=== PATIENT | male | born 1945 | race Caucasian/White ===

== ENCOUNTER → 2017-01-27 | Outpatient (CLI) | payer MEDICARE, OTHER ==
[~2017-01-27] MED LIST: B COMPLEX1 TA4 PO; CARDI-OMEGA1000 MG PO; FIBER TABLETS1 TAB PO; GLUCOSAMINE & C1 TA1 PO; MULTIPLE VITAMI1 CAP PO; PRILOSEC 20MG20 MG PO; TOPROL XL25 MG PO; XARELTO20 MG PO
== END ==
LOC: LAB 10:06
DX: I48.2 Chronic atrial fibrillation (principal); E78.2 Mixed hyperlipidemia

== ENCOUNTER → 2017-06-22 | Outpatient (CLI) | payer MEDICARE, OTHER ==
[~2017-06-22] VITALS: Ht 175.3 cm; Wt 84.1 kg
[2017-06-22 10:42] VITALS: BP 130/83
== END ==
LOC: RAD 09:48 → AMSURD 09:48
DX: Z01.818 Encounter for other preprocedural examination (principal); H25.019 Cortical age-related cataract, unspecified eye; K90.9 Intestinal malabsorption, unspecified

== ENCOUNTER → 2018-02-02 | Outpatient (CLI) | payer MEDICARE, OTHER ==
[2017-06-22 10:42] VITALS: BP 130/83
[2018-02-02 12:21] LABS: EOS # 0.1 (0.04-0.40); EOS % 2.2 % (0.0-4.0); HEMATOCRIT 47.1 % (42.0-52.0); HEMOGLOBIN 15.8 g/dL (13.5-18.0); LYMPH# 1.5 (1.50-4.00); MEAN CELL VOLUME 91 fl (78-100); MEAN CORPUSCULAR HEMOGLOBIN 30 pg (27-31); MEAN CORPUSCULAR HGB CONC 34 g/dL (33-37); MEAN PLATELET VOLUME 9.8 fl (7.4-10.4); MONO # 0.6 (0.20-0.80); NEU # 3.3 (1.40-6.50); PLATELET COUNT 246 K/mm3 (130-400); RED BLOOD COUNT 5.19 M/mm3 (4.20-5.60); RED CELL DISTRIBUTION WIDTH 13.2 % (11.5-14.5); WHITE BLOOD COUNT 5.6 K/mm3 (4.8-10.8)
[2018-02-02 12:34] LABS: ALBUMIN 4.1 g/dL (3.5-5.0); BUN/CREATININE RATIO 12.7 (6.0-26.0); CALCIUM 9.3 mg/dL (8.4-10.2); POTASSIUM 4.1 mmol/L (3.6-5.0); TOTAL BILIRUBIN 0.7 mg/dL (0.2-1.3); TOTAL PROTEIN 7.6 g/dL (6.3-8.2)
[2018-02-02 13:23] LABS: ERYTHROCYTE SEDIMENTATION RATE 7 mm/hr (0-20)
== END ==
LOC: LAB 11:03
PROVIDERS: Internal Medicine
DX: I48.91 Unspecified atrial fibrillation (principal); E78.5 Hyperlipidemia, unspecified; Z12.11 Encounter for screening for malignant neoplasm of colon

== ENCOUNTER → 2019-02-04 | Outpatient (CLI) | payer MEDICARE, OTHER ==
[2017-06-22 10:42] VITALS: BP 130/83
[2019-02-04 09:45] LABS: EOS % 0.8 % (0.0-4.0); HEMATOCRIT 48.4 % (42.0-52.0); HEMOGLOBIN 15.9 g/dL (13.5-18.0); LYMPH# 1.4 (1.50-4.00); MEAN CELL VOLUME 92 fl (78-100); MEAN CORPUSCULAR HEMOGLOBIN 30 pg (27-31); MEAN CORPUSCULAR HGB CONC 33 g/dL (33-37); MEAN PLATELET VOLUME 10.4 fl (7.4-10.4); MONO # 0.6 (0.20-0.80); NEU # 3.1 (1.40-6.50); PLATELET COUNT 240 K/mm3 (130-400); RED BLOOD COUNT 5.28 M/mm3 (4.20-5.60); RED CELL DISTRIBUTION WIDTH 13.4 % (11.5-14.5); WHITE BLOOD COUNT 5.2 K/mm3 (4.8-10.8)
[2019-02-04 09:55] LABS: ALBUMIN 4.3 g/dL (3.5-5.0); CALCIUM 9.5 mg/dL (8.4-10.2); POTASSIUM 4.3 mmol/L (3.6-5.0); TOTAL BILIRUBIN 0.7 mg/dL (0.2-1.3); TOTAL PROTEIN 7.6 g/dL (6.3-8.2)
== END ==
LOC: LAB 09:11
PROVIDERS: Internal Medicine
DX: Z12.11 Encounter for screening for malignant neoplasm of colon (principal); I48.2 Chronic atrial fibrillation; E78.5 Hyperlipidemia, unspecified

== ENCOUNTER → 2019-02-17 | Outpatient (CLI) | payer MEDICARE, OTHER ==
[2017-06-22 10:42] VITALS: BP 130/83
== END ==
LOC: LAB 10:47
DX: Z12.11 Encounter for screening for malignant neoplasm of colon (principal)

== ENCOUNTER → 2020-04-02 | Outpatient (CLI) | payer MEDICARE, OTHER ==
[2017-06-22 10:42] VITALS: BP 130/83
[2020-04-02 10:02] LABS: EOS # 0.1 (0.04-0.40); EOS % 2.1 % (0.0-4.0); HEMATOCRIT 48.3 % (42.0-52.0); HEMOGLOBIN 15.9 g/dL (13.5-18.0); LYMPH# 1.5 (1.50-4.00); MEAN CELL VOLUME 92 fl (78-100); MEAN CORPUSCULAR HEMOGLOBIN 30 pg (27-31); MEAN CORPUSCULAR HGB CONC 33 g/dL (33-37); MEAN PLATELET VOLUME 10.2 fl (7.4-10.4); MONO # 0.6 (0.20-0.80); NEU # 3.1 (1.40-6.50); PLATELET COUNT 251 K/mm3 (130-400); RED BLOOD COUNT 5.26 M/mm3 (4.20-5.60); RED CELL DISTRIBUTION WIDTH 13.4 % (11.5-14.5); WHITE BLOOD COUNT 5.3 K/mm3 (4.8-10.8)
[2020-04-02 10:35] LABS: ALBUMIN 4.2 g/dL (3.4-4.8); POTASSIUM 4.2 mmol/L (3.5-5.1)
[2020-04-02 10:36] LABS: CALCIUM 9.8 mg/dL (8.3-10.5)
[2020-04-02 10:38] LABS: TOTAL PROTEIN 7.3 g/dL (6.2-8.1)
[2020-04-02 10:39] LABS: TOTAL BILIRUBIN 0.6 mg/dL (0.2-1.2)
== END ==
LOC: LAB 09:39
PROVIDERS: Internal Medicine
DX: Z12.9 Encounter for screening for malignant neoplasm, site unspecified (principal); I48.20 Chronic atrial fibrillation, unspecified; E78.5 Hyperlipidemia, unspecified

== ENCOUNTER → 2020-04-06 | Outpatient (CLI) | payer MEDICARE, OTHER ==
[2017-06-22 10:42] VITALS: BP 130/83
== END ==
LOC: LAB 14:13
DX: Z12.9 Encounter for screening for malignant neoplasm, site unspecified (principal); I48.20 Chronic atrial fibrillation, unspecified; E78.5 Hyperlipidemia, unspecified

== ENCOUNTER → 2021-04-09 | Outpatient (CLI) | payer MEDICARE, OTHER ==
[2017-06-22 10:42] VITALS: BP 130/83
[2021-04-09 10:38] LABS: BASO # 0.04 (0.02-0.10); EOS # 0.01 (0.04-0.40); EOS % 0.2 % (0.0-4.0); HEMATOCRIT 45.7 % (42.0-52.0); HEMOGLOBIN 15.4 g/dL (13.5-18.0); LYMPH# 0.78 (1.50-4.00); MEAN CELL VOLUME 91 fl (78-100); MEAN CORPUSCULAR HEMOGLOBIN 31 pg (27-31); MEAN CORPUSCULAR HGB CONC 34 g/dL (33-37); MEAN PLATELET VOLUME 9.5 fl (7.4-10.4); MONO # 0.38 (0.20-0.80); NEU # 4.26 (1.40-6.50); PLATELET COUNT 281 K/mm3 (130-400); RED BLOOD COUNT 5.03 M/mm3 (4.20-5.60); RED CELL DISTRIBUTION WIDTH 12.6 % (11.5-14.5); WHITE BLOOD COUNT 5.5 K/mm3 (4.8-10.8)
[2021-04-09 10:51] LABS: POTASSIUM 4.5 mmol/L (3.5-5.1)
[2021-04-09 10:52] LABS: ALBUMIN 4.1 g/dL (3.4-4.8)
[2021-04-09 10:53] LABS: CALCIUM 9.3 mg/dL (8.3-10.5)
[2021-04-09 10:54] LABS: TOTAL PROTEIN 7.4 g/dL (6.2-8.1)
[2021-04-09 11:09] LABS: TOTAL BILIRUBIN 0.5 mg/dL (0.2-1.2)
[2021-04-09 11:49] LABS: ERYTHROCYTE SEDIMENTATION RATE 12 mm/hr (0-20)
== END ==
LOC: LAB 10:13
PROVIDERS: Internal Medicine
DX: Z12.11 Encounter for screening for malignant neoplasm of colon (principal); E78.2 Mixed hyperlipidemia

== ENCOUNTER → 2021-04-16 | Outpatient (CLI) | payer MEDICARE, OTHER ==
[2017-06-22 10:42] VITALS: BP 130/83
== END ==
LOC: LAB 11:17
DX: Z12.11 Encounter for screening for malignant neoplasm of colon (principal)

== ENCOUNTER → 2021-05-31 | Outpatient (CLI) | payer MEDICARE, OTHER | LOC: RAD 13:18 | DX: M79.671 Pain in right foot (principal) ==

== ENCOUNTER → 2022-04-15 | Outpatient (CLI) | payer MEDICARE, OTHER ==
[2022-04-15 09:34] LABS: BASO # 0.04 K/mm3 (0.02-0.10); EOS # 0.04 K/mm3 (0.04-0.40); EOS % 0.9 % (0.0-4.0); HEMATOCRIT 45.3 % (42.0-52.0); HEMOGLOBIN 14.8 g/dL (13.5-18.0); MEAN CELL VOLUME 92 fl (78-100); MEAN CORPUSCULAR HEMOGLOBIN 30 pg (27-31); MEAN CORPUSCULAR HGB CONC 33 g/dL (33-37); MEAN PLATELET VOLUME 9.5 fl (7.4-10.4); MONO # 0.42 K/mm3 (0.20-0.80); NEU # 2.57 K/mm3 (1.40-6.50); PLATELET COUNT 244 K/mm3 (130-400); RED BLOOD COUNT 4.91 M/mm3 (4.20-5.60); WHITE BLOOD COUNT 4.5 K/mm3 (4.8-10.8)
[2022-04-15 09:43] LABS: ALBUMIN 4.2 g/dL (3.4-4.8); POTASSIUM 4.2 mmol/L (3.5-5.1)
[2022-04-15 09:44] LABS: CALCIUM 9.6 mg/dL (8.3-10.5)
[2022-04-15 09:46] LABS: TOTAL PROTEIN 7.3 g/dL (6.2-8.1)
[2022-04-15 09:48] LABS: TOTAL BILIRUBIN 0.7 mg/dL (0.2-1.2)
[2022-04-15 09:53] LABS: MAGNESIUM 2.14 mg/dL (1.60-2.60)
[2022-04-15 10:49] LABS: ERYTHROCYTE SEDIMENTATION RATE 9 mm/hr (0-20)
== END ==
LOC: LAB 09:16
PROVIDERS: Internal Medicine
DX: Z12.11 Encounter for screening for malignant neoplasm of colon (principal); Q66.72 Congenital pes cavus, left foot; E78.2 Mixed hyperlipidemia; I48.20 Chronic atrial fibrillation, unspecified; K21.9 Gastro-esophageal reflux disease without esophagitis; K22.70 Barrett's esophagus without dysplasia; M77.9 Enthesopathy, unspecified

== ENCOUNTER → 2024-02-17 | Outpatient (CLI) | payer MEDICARE, OTHER ==
[2024-02-17 09:18] LABS: BASO # 0.02 K/mm3 (0.02-0.10); EOS # 0.05 K/mm3 (0.04-0.40); EOS % 0.9 % (0.0-4.0); HEMATOCRIT 47.6 % (42.0-52.0); HEMOGLOBIN 15.5 g/dL (13.5-18.0); LYMPH# 1.67 K/mm3 (1.50-4.00); MEAN CELL VOLUME 94 fl (78-100); MEAN CORPUSCULAR HEMOGLOBIN 31 pg (27-31); MEAN CORPUSCULAR HGB CONC 33 g/dL (33-37); MEAN PLATELET VOLUME 9.6 fl (7.4-10.4); MONO # 0.48 K/mm3 (0.20-0.80); PLATELET COUNT 281 K/mm3 (130-400); RED BLOOD COUNT 5.08 M/mm3 (4.20-5.60); RED CELL DISTRIBUTION WIDTH 13.1 % (11.5-14.5); WHITE BLOOD COUNT 5.3 K/mm3 (4.8-10.8)
[2024-02-17 09:23] LABS: ALBUMIN 4.2 g/dL (3.4-4.8)
[2024-02-17 09:24] LABS: CALCIUM 9.6 mg/dL (8.3-10.5)
[2024-02-17 09:25] LABS: TOTAL PROTEIN 7.4 g/dL (6.2-8.1)
[2024-02-17 09:27] LABS: TOTAL BILIRUBIN 0.8 mg/dL (0.2-1.2)
[2024-02-17 09:32] LABS: MAGNESIUM 2.14 mg/dL (1.60-2.60)
[2024-02-17 22:05] LABS: HEPATITIS C VIRUS ANTIBODY Negative (Negative)
[2024-02-18 13:52] LABS: TESTOSTERONE 626 ng/dL (221-716)
== END ==
LOC: LAB 08:50
PROVIDERS: Internal Medicine
DX: Z12.5 Encounter for screening for malignant neoplasm of prostate (principal); Z12.11 Encounter for screening for malignant neoplasm of colon; Z11.59 Encounter for screening for other viral diseases; F52.21 Male erectile disorder; I48.20 Chronic atrial fibrillation, unspecified; E78.2 Mixed hyperlipidemia; R73.9 Hyperglycemia, unspecified